=== PATIENT | female | born 1985 | race Two or more races ===

== ENCOUNTER 2018-11-17 00:16 | Emergency (ER) | payer MEDICAID ==
[~2018-11-17] VITALS: Ht 149.9 cm; Wt 61.7 kg
[2018-11-17 00:40] LABS: APPEARANCE,URINE CLEAR; BILIRUBIN, URINE NEGATIVE (NEGATIVE); COLOR,URINE RED; GLUCOSE, URINE (UA) NEGATIVE (NEGATIVE); KETONES,URINE NEGATIVE (NEGATIVE); LEUKOCYTE ESTERASE ,URINE 3+ (NEGATIVE); NITRITE,URINE NEGATIVE (NEGATIVE); PH,URINE 7 (4.5-8.0); PROTEIN,URINE 3+ (NEGATIVE); UROBILINOGEN,URINE NORMAL MG/DL (0.0-1.0)
--- NOTE | 2018-11-17 00:40 | NUR ---
ED Nurse Note: Recieved pt from home, here with c/o lower abdominal pain with burning during urination for 2 days, denies nausea, vomiting, fevers, or any other complaitns or discomfmorts, pt is ambulatory, urine sample collected and sent, pt assisted to gowning, will resume care as ordered and closely monitor.
[2018-11-17] MEDS ORDERED: Ketorolac 30mg Inj IV ONE (00:45)
[2018-11-17 01:12] LABS: BASOPHILS % (AUTO) 0.5 % (0.0-2.0); EOSINOPHILS % (AUTO) 0.1 % (0.0-3.0); HEMATOCRIT 37.2 % (37.0-47.0); HEMOGLOBIN 12.6 G/DL (12.0-16.0); LYMPHOCYTES % (AUTO) 9.6 % (20.0-45.0); MEAN CORPUSCULAR VOLUME 88 FL (80-99); MONOCYTES % (AUTO) 5.9 % (1.0-10.0); NEUTROPHILS % (AUTO) 83.9 % (45.0-75.0); PLATELET COUNT 290 K/UL (150-450); RED BLOOD COUNT 4.24 M/UL (4.20-5.40); RED CELL DISTRIBUTION WIDTH 11.4 % (11.6-14.8); WHITE BLOOD COUNT 15.9 K/UL (4.8-10.8)
[2018-11-17 01:23] LABS: ANION GAP 10 mmol/L (5-15); BLOOD UREA NITROGEN 8 mg/dL (7-18); CARBON DIOXIDE 25 MMOL/L (21-32); CHLORIDE 106 MMOL/L (98-107); CREATININE 0.7 MG/DL (0.55-1.30); POTASSIUM 3.2 MMOL/L (3.5-5.1); SODIUM 141 MMOL/L (136-145)
--- NOTE | 2018-11-17 01:25 | Emergency Room Report ---
History of Present Illness General Chief Complaint: Female Urogenital Problems Source: Patient Present Illness HPI Patient presents with dysuria and flushed feeling. She denies any body pain at this time. She started passing blood also. She was at work when she started to feel this way and had to finish up her shift. Never had bladder infections before. Her last period was November 12. She believes it was normal but is not sure whether she is or not because she is not using control. She had arranged for the care of her children in order to come to the emergency department. She denies any nausea, vomiting or diarrhea at this time. She denies any flank pain or back pain. She denies any productive cough or rash. She felt hot in the car coming over because there is no air-conditioning. Denies any medical problems. No fevers, chills, sore throat, chest pain, palpitations, nausea, vomiting, diarrhea, abdominal pain, shortness of breath, joint pain, rashes, depression, anxiety, visual changes, headache. Allergies: Coded Allergies: No Known Allergies (Unverified , 11/17/18) Patient History Past Medical History: see triage record Social History: Denies: smoking, alcohol use, drug use Social History Narrative works in [employer] Last Menstrual Period: 11/02/18 Now: No : 4 Para: 4 Reviewed Nursing Documentation: PMH: Agreed; PSxH: Agreed Review of Systems All Other Systems: negative except mentioned in HPI Physical Exam Vital Signs Date Time Temp Pulse Resp B/P (MAP) Pulse Ox O2 Delivery O2 Flow Rate FiO2 11/17/18 00:21 98.4 112 18 137/93 (108) 96 Room Air Sp02 EP Interpretation: reviewed, normal General Appearance: well appearing, no apparent distress, GCS 15 Head: normocephalic Eyes: bilateral eye normal inspection, bilateral eye PERRL ENT: moist mucus membranes Neck: supple Respiratory: lungs clear, normal breath sounds Cardiovascular #1: regular rate, rhythm Cardiovascular #2: 2+ radial (R) Gastrointestinal: normal inspection, normal bowel sounds, non tender, no mass, non-distended Genitourinary: no CVA tenderness Musculoskeletal: back normal, gait/station normal, normal range of motion Neurologic: alert, oriented x3, grossly normal Psychiatric: mood/affect normal Skin: no rash, other - flushed Medical Decision Making Diagnostic Impression: Primary Impression: Pyelonephritis Additional Impression: Hemorrhagic cystitis ER Course Patient presented with hematuria and dysuria. Differential includes pyelonephritis, UTI, abnormal vaginal bleeding, amongst others. Evaluation will be with UA, urine and labs. Because the patient is flushed and tachycardic she will receive a fluid bolus and continued IV hydration. She will receive a dose of Toradol and Tylenol. Labs significant for leukocytosis and hematuria and pyuria. Clinically the patient has pyelonephritis even though there is no significant back pain. A dose of Rocephin is given IV. She improved with treatment. She insists on going to work even though I am putting her off. She has no private doctor and so I advised her to return here if she is having trouble with pain, weakness, eating or tolerating the oral antibiotics. Stable for outpatient observation and treatment. Laboratory Tests Test 11/17/18 00:30 11/17/18 00:45 Urine Color Red Urine Appearance Clear Urine pH 7 (4.5-8.0) Urine Specific [place] 1.005 (1.005-1.035) Urine Protein 3+ (NEGATIVE) H Urine Glucose (UA) Negative (NEGATIVE) Urine Ketones Negative (NEGATIVE) Urine Blood 5+ (NEGATIVE) H Urine Nitrite Negative (NEGATIVE) Urine Bilirubin Negative (NEGATIVE) Urine Urobilinogen Normal MG/DL (0.0-1.0) Urine Leukocyte Esterase 3+ (NEGATIVE) H Urine RBC Tntc /HPF (0 - 2) H Urine WBC 30-40 /HPF (0 - 2) H Urine Squamous Epithelial Cells Few /LPF (NONE/OCC) Urine Bacteria Few /HPF (NONE) Urine HCG, Qualitative Negative (NEGATIVE) White Blood Count 15.9 K/UL (4.8-10.8) H Red Blood Count 4.24 M/UL (4.20-5.40) Hemoglobin 12.6 G/DL (12.0-16.0) Hematocrit 37.2 % (37.0-47.0) Mean Corpuscular Volume 88 FL (80-99) Mean Corpuscular Hemoglobin 29.7 PG (27.0-31.0) Mean Corpuscular Hemoglobin Concent 33.8 G/DL (32.0-36.0) Red Cell Distribution Width 11.4 % (11.6-14.8) L Platelet Count 290 K/UL (150-450) Mean Platelet Volume 6.1 FL (6.5-10.1) L Neutrophils (%) (Auto) 83.9 % (45.0-75.0) H Lymphocytes (%) (Auto) 9.6 % (20.0-45.0) L Monocytes (%) (Auto) 5.9 % (1.0-10.0) Eosinophils (%) (Auto) 0.1 % (0.0-3.0) Basophils (%) (Auto) 0.5 % (0.0-2.0) Sodium Level 141 MMOL/L (136-145) Potassium Level 3.2 MMOL/L (3.5-5.1) L Chloride Level 106 MMOL/L (98-107) Carbon Dioxide Level 25 MMOL/L (21-32) Anion Gap 10 mmol/L (5-15) Blood Urea Nitrogen 8 mg/dL (7-18) Creatinine 0.7 MG/DL (0.55-1.30) Estimate Glomerular Filtration Rate > 60 mL/min (>60) Glucose Level 119 MG/DL (74-106) H Calcium Level 9.0 MG/DL (8.5-10.1) Total Bilirubin 0.4 MG/DL (0.2-1.0) Aspartate Amino Transferase (AST) 18 U/L (15-37) Alanine Aminotransferase (ALT) 25 U/L (12-78) Alkaline Phosphatase 62 U/L (46-116) Total Protein 7.5 G/DL (6.4-8.2) Albumin 4.1 G/DL (3.4-5.0) Globulin 3.4 g/dL Albumin/Globulin Ratio 1.2 (1.0-2.7) Lipase 103 U/L (73-393) Last Vital Signs Date Time Temp Pulse Resp B/P (MAP) Pulse Ox O2 Delivery O2 Flow Rate FiO2 11/17/18 03:02 98.5 18 129/88 98 Room Air 11/17/18 02:30 91 Status: improved Disposition: HOME, SELF-CARE Condition: Improved Scripts Acetaminophen (Tylenol) 325 Mg Tablet 650 MG ORAL Q6H PRN for Prn Pain/Headache/Temp > 101, #20 TAB 0 Refills Prov: Amari Gage MD 11/17/18 Ciprofloxacin Hcl* (CIPROFLOXACIN HCL*) 500 Mg Tablet 500 MG ORAL Q12H, #20 TAB 0 Refills Prov: Amari Gage MD 11/17/18 Referrals: NOT CHOSEN IPA/,REFERRING (PCP) Amari Gage MD Nov 17, 2018 01:25
[2018-11-17 01:27] LABS: ALANINE AMINOTRANSFERASE 25 U/L (12-78); ALBUMIN 4.1 G/DL (3.4-5.0); ALBUMIN/GLOBULIN RATIO 1.2 (1.0-2.7); ALKALINE PHOSPHATASE 62 U/L (46-116); ASPARTATE AMINO TRANSFERASE 18 U/L (15-37); BILIRUBIN,TOTAL 0.4 MG/DL (0.2-1.0)
[2018-11-17] MEDS ORDERED: cefTRIAXone 1 GM in NS 55 ML IVPB ONE (01:30)
--- NOTE | 2018-11-17 02:01 | NUR ---
ED Nurse Note: Patient resting comfortably with no s/s of acute distress. NS running. Patient reports no pain at this time. Will continue to monitor.
[2018-11-17] MEDS ORDERED: CIPROFLOXACIN500 M2 ORAL (02:08)
[2018-11-17] MEDS ORDERED: TYLENOL325 MG ORAL (02:08)
[2018-11-17 02:30] VITALS: BP 129/88
[2018-11-17 03:02] VITALS: BP 129/88
== END 2018-11-17 03:04 | disposition home or self-care (01) ==
LOC: EMR 00:44
DX: N12 Tubulo-interstitial nephritis, not specified as acute or chronic (principal); N30.91 Cystitis, unspecified with hematuria; D72.829 Elevated white blood cell count, unspecified
CPT/HCPCS: 36415; 80053; 81003; 81025; 83690; 85025; 87086; 96361; 96365; 96375; 99284; J0696; J1885